=== PATIENT | male | born 1965 | race American Indian/Alaskan Native ===

== ENCOUNTER 2017-12-10 10:05 | Emergency (ER) | payer SELFPAY ==
[2017-12-10 10:16] VITALS: BP 159/89
[2017-12-10] MEDS ORDERED: TORADOL IV ONE (11:13)
[2017-12-10] MEDS ORDERED: NACL 0.9% 1000 ML 1,000 ML IV ONE (11:13)
[2017-12-10] MEDS ORDERED: ULTRAM PO ONE (11:13)
--- NOTE | 2017-12-10 11:20 | Emergency Department Report ---
Blank Doc - Documentation Documentation: 52-year-old male with left leg pain since last night. Patient reports previous history of DVT in left leg 3 years ago. Not currently on blood thinners. He states since the DVT, has had chronic swelling and chronic pain left leg. Reports pain worsened yesterday and is located on the lateral aspect of left leg. Patient reports chronic rash around the left ankle since DVT diagnosis. Patient reports headache, denies fever, nausea, vomiting, shortness of breath. On exam left leg greater than right, which is normal at baseline per patient. Patient has a hyperpigmented, macular rash to left ankle. Mild erythema and tenderness present on lateral aspect of left lower leg. No calf tenderness present. DVT versus cellulitis. We will obtain ultrasound of the leg and labs.
[2017-12-10 11:38] LABS: Basophils % (Auto) 0.7 % (0.0-1.8); Eosinophils # (Auto) 0.2 K/mm3 (0.0-0.4); Eosinophils % (Auto) 4.2 % (0.0-4.3); Hematocrit 40.3 % (35.5-45.6); Hemoglobin 12.9 gm/dl (11.8-15.2); Lymphocytes # (Auto) 0.8 K/mm3 (1.2-5.4); Lymphocytes % (Auto) 16.8 % (13.4-35.0); Mean Corpuscular HGB Conc 32 % (32-34); Mean Corpuscular Hemoglobin 26 pg (28-32); Mean Corpuscular Volume 82 fl (84-94); Monocytes # (Auto) 0.4 K/mm3 (0.0-0.8); Monocytes % (Auto) 8.8 % (0.0-7.3); Platelet Count 207 K/mm3 (140-440); Red Blood Count 4.91 M/mm3 (3.65-5.03); Red Cell Distribution Width 21.1 % (13.2-15.2)
[2017-12-10 11:46] LABS: INR 1.01 (0.87-1.13)
[2017-12-10 11:47] LABS: Partial Thromboplastin Time 24.1 Sec. (24.2-36.6)
[2017-12-10 11:56] LABS: BUN/Creatinine Ratio 14; Blood Urea Nitrogen 11 mg/dL (9-20); Calcium 8.8 mg/dL (8.4-10.2); Hemolysis Index 43
--- NOTE | 2017-12-10 12:59 | Emergency Department Report ---
ED Extremity Problem HPI - General Chief complaint: Extremity Injury, Lower Stated complaint: HEADACHE/LEG PAIN Time Seen by Provider: 12/10/17 10:52 Source: patient, family Mode of arrival: Ambulatory Limitations: No Limitations - History of Present Illness Initial comments: 52-year-old male with left leg pain since last night. Patient reports previous history of DVT in left leg 3 years ago. Not currently on blood thinners. He states since the DVT, has had chronic swelling and chronic pain left leg. Reports pain worsened yesterday and is located on the lateral aspect of left leg. Patient reports chronic rash around the left ankle since DVT diagnosis. Patient reports headache, denies fever, nausea, vomiting, shortness of breath. Patient also reports rash to his lower leg has been there for a year. Pain is 7 out of 10 and achy. Pain is worse with movement and walking. Patient says that he does not have any insurance so he cannot follow up but he had previously treated at [facility] when he did have insurance. He currently does not have a primary care doctor. MD Complaint: extremity pain -: Last night Location: left, lower extremity History of Same: Yes -: No myalgia, Yes arthralgia, No fever, No associated dyspnea, No associated chest pain Radiation: none Severity scale (0 -10): 7 Quality: aching Consistency: constant Improves with: rest Worsens with: weight bearing, walking Associated Symptoms: arthralgias, other (headache). denies: chest pain, shortness of breath, fever, myalgias, rash - Related Data Previous Rx's Medication Instructions Recorded Last Taken Type HYDROcodone/APAP 5-325 [Drifting 1 each PO Q6HR PRN #14 tablet 08/21/13 Unknown Rx 5-325 mg TAB] Ibuprofen [Motrin] 800 mg PO Q8H PRN #20 tablet 08/21/13 Unknown Rx Clindamycin [Clindamycin CAP] 300 mg PO Q8H 10 Days #30 cap 12/10/17 Unknown Rx Triamcinolone 0.1% [Kenalog 0.1% 1 applic TP TID 7 Days #1 tube 12/10/17 Unknown Rx CREAM] traMADol [Ultram 50 MG tab] 50 mg PO Q6HR PRN #12 tablet 12/10/17 Unknown Rx Allergies Allergy/AdvReac Type Severity Reaction Status Date / Time Penicillins Allergy Itching Verified 12/10/17 10:14 ED Review of Systems ROS: Stated complaint: HEADACHE/LEG PAIN Other details as noted in HPI Constitutional: denies: chills, fever Eyes: denies: eye pain, eye discharge, vision change ENT: denies: ear pain, throat pain, congestion Respiratory: denies: cough, shortness of breath, SOB with exertion, SOB at rest , stridor, wheezing Cardiovascular: edema. denies: chest pain, palpitations, dyspnea on exertion, syncope Gastrointestinal: denies: abdominal pain, nausea, vomiting, diarrhea Genitourinary: denies: urgency, dysuria, hematuria Musculoskeletal: arthralgia, other (abdomen to lower extremity). denies: back pain, joint swelling, myalgia Skin: denies: rash, lesions Neurological: headache. denies: weakness, numbness, paresthesias, confusion, abnormal gait, vertigo ED Past Medical Hx - Past Medical History Previous Medical History?: Yes Hx Deep Vein Thrombosis: Yes Additional medical history: GI bleed - Surgical History Past Surgical History?: Yes Hx Appendectomy: Yes Additional Surgical History: Bilateral inguinal hernia repair - Family History Family history: hypertension - Social History Smoking Status: Never Smoker Substance Use Type: Alcohol - Medications Home Medications: Home Medications Medication Instructions Recorded Confirmed Last Taken Type HYDROcodone/APAP 5-325 [Drifting 1 each PO Q6HR PRN #14 tablet 08/21/13 Unknown Rx 5-325 mg TAB] Ibuprofen [Motrin] 800 mg PO Q8H PRN #20 tablet 08/21/13 Unknown Rx Clindamycin [Clindamycin CAP] 300 mg PO Q8H 10 Days #30 cap 12/10/17 Unknown Rx Triamcinolone 0.1% [Kenalog 0.1% 1 applic TP TID 7 Days #1 tube 12/10/17 Unknown Rx CREAM] traMADol [Ultram 50 MG tab] 50 mg PO Q6HR PRN #12 tablet 12/10/17 Unknown Rx ED Physical Exam - General Limitations: No Limitations General appearance: alert, in no apparent distress - Head Head exam: Present: atraumatic, normocephalic, normal inspection, other (normal exam) - Eye Eye exam: Present: normal appearance, PERRL, EOMI. Absent: periorbital swelling , periorbital tenderness Pupils: Present: normal accommodation - ENT ENT exam: Present: normal exam, normal orophraynx, mucous membranes moist, TM's normal bilaterally, normal external ear exam - Neck Neck exam: Present: normal inspection, full ROM. Absent: tenderness, lymphadenopathy - Respiratory Respiratory exam: Present: normal lung sounds bilaterally. Absent: respiratory distress, wheezes, rales, rhonchi, stridor, chest wall tenderness, accessory muscle use, decreased breath sounds, prolonged expiratory - Cardiovascular Cardiovascular Exam: Present: regular rate, normal rhythm, normal heart sounds. Absent: systolic murmur, diastolic murmur - GI/Abdominal GI/Abdominal exam: Present: soft, normal bowel sounds. Absent: distended, tenderness, guarding, rebound, rigid, organomegaly, mass - Extremities Exam Extremities exam: Present: normal inspection, full ROM, tenderness (left lower extremity), normal capillary refill, pedal edema (left leg, ankle and foot), joint swelling, other (No cce. + 2 pulses in all extremities, no neurovascular compromise except for left leg with swelling and an tenderness to palpate an rash. Mild erythema noted to the distal leg.). Absent: calf tenderness - Expanded Lower Extremity Exam Left Hip exam: Present: normal inspection, full ROM, pelvic stability. Absent: tenderness, swelling, abrasion, laceration, ecchymosis, deformity, crepidus, dislocation, erythema, external rotation, internal rotation, shortening Upper Leg exam: Present: normal inspection, full ROM. Absent: tenderness, swelling, abrasion, laceration, ecchymosis, deformity, crepidus, dislocation, erythema Knee exam: Present: normal inspection, full ROM, full knee extension. Absent: tenderness, swelling, abrasion, laceration, ecchymosis, deformity, crepidus, dislocation, erythema, effusion, pain w/ pronation/supination Lower Leg exam: Present: full ROM, tenderness (distal leg), swelling (leg to include ankle and foot), erythema (mild erythema distal leg around the rash site ). Absent: normal inspection, abrasion, laceration, ecchymosis, deformity, crepidus, dislocation, palpable cord, Prachi's sign Ankle exam: Present: full ROM, swelling. Absent: normal inspection, tenderness , abrasion, laceration, ecchymosis, deformity, crepidus, dislocation, erythema Foot/Toe exam: Present: full ROM, swelling. Absent: normal inspection, tenderness, abrasion, laceration, ecchymosis, deformity, crepidus, dislocation, erythema, amputation, puncture wound, foreign body, calcaneal tenderness, tenderness at base of 5th metatarsal, nail avulsion, subungual hematoma Neuro vascular tendon exam: Present: no vascular compromise. Absent: pulse deficit, abnormal cap refill, motor deficit, sensory deficit, tendon deficit, extremity cold to touch, pallor, abnormal 2-point discrimination, decreased fine /light touch, foot drop, peroneal nerve deficit, significant pain with passive ROM of distal joint Gait: Positive: observed and limited by pain - Back Exam Back exam: Present: normal inspection, full ROM, other (relates that difficulties) - Neurological Exam Neurological exam: Present: alert, oriented X3, normal gait, reflexes normal. Absent: motor sensory deficit - Psychiatric Psychiatric exam: Present: normal affect, normal mood - Skin Skin exam: Present: warm, dry, intact, normal color, rash (noted rash to distal anterior leg, hypopigmented, flat without any drainage. Some redness noted.), erythema (around rest sided distal anterior leg) ED Course Vital Signs 12/10/17 12/10/17 12/10/17 10:14 10:34 12:36 Temperature 98.5 F Pulse Rate 85 Respiratory 16 16 18 Rate Blood Pressure 159/89 O2 Sat by Pulse 99 Oximetry 12/10/17 13:00 Temperature Pulse Rate Respiratory 18 Rate Blood Pressure O2 Sat by Pulse Oximetry - Reevaluation(s) Reevaluation #1: 12/10/17 13:08 Patient given normal saline 1 L, Toradol 50 mg IV and Ultram 50 mg by mouth. He voices relief of pain and said he feels better. Denies any headache at present. ED Medical Decision Making - Lab Data Result diagrams: 12/10/17 11:26 12/10/17 11:26 Lab Results 12/10/17 12/10/17 12/10/17 Range/Units 11:26 11:26 11:26 WBC 4.7 (4.5-11.0) K/mm3 RBC 4.91 (3.65-5.03) M/mm3 Hgb 12.9 (11.8-15.2) gm/dl Hct 40.3 (35.5-45.6) % MCV 82 L (84-94) fl MCH 26 L (28-32) pg MCHC 32 (32-34) % RDW 21.1 H (13.2-15.2) % Plt Count 207 (140-440) K/mm3 Lymph % (Auto) 16.8 (13.4-35.0) % [place] % (Auto) 8.8 H (0.0-7.3) % Eos % (Auto) 4.2 (0.0-4.3) % Baso % (Auto) 0.7 (0.0-1.8) % Lymph # 0.8 L (1.2-5.4) K/mm3 [place] # 0.4 (0.0-0.8) K/mm3 Eos # 0.2 (0.0-0.4) K/mm3 Baso # 0.0 (0.0-0.1) K/mm3 Seg Neutrophils % 69.5 (40.0-70.0) % Seg Neutrophils # 3.3 (1.8-7.7) K/mm3 PT 13.8 (12.2-14.9) Sec. INR 1.01 (0.87-1.13) APTT 24.1 L (24.2-36.6) Sec. D-Dimer 152.02 (0-234) ng/mlDDU Sodium 136 L (137-145) mmol/L Potassium 3.8 (3.6-5.0) mmol/L Chloride 103.0 (98-107) mmol/L Carbon Dioxide 23 (22-30) mmol/L Anion Gap 14 mmol/L BUN 11 (9-20) mg/dL Creatinine 0.8 (0.8-1.5) mg/dL Estimated GFR > 60 ml/min BUN/Creatinine Ratio 14 % Glucose 89 (75-100) mg/dL Calcium 8.8 (8.4-10.2) mg/dL - Radiology Data Radiology results: report reviewed Preliminary ultrasound lower extremity report below and final report to come from radiology. AUTUMNARNAV Baxter TATI Male : 1965 MedRec# [id number] 12/10/17 11:48 - Radiology Dept. Note by RABIA AYERS Acct Num: [id number] : 1965 Patient Age: 52 LLE VENOUS DUPLEX COMPLETED. VAS LAB PRELIMINARY REPORT; NO EVIDENCE OF ACUTE DVT/SVT NOTED IN VESSELS/SEGMENTS EXAMINED. CHRONIC/ RECANALIZED CLOT NOTED IN LT. DST SFV, POP V AND PX CALF VESSELS (PTV). PHYSICIANS REPORT TO FOLLOW...(RSK ) Initialized on 12/10/17 11:48 - END OF NOTE - Medical Decision Making 52-year-old male here for leg pain and swelling and headache. Patient was screened by Dr. Mo and ordered place. Radiology LLE VENOUS DUPLEX COMPLETED. VAS LAB PRELIMINARY REPORT; NO EVIDENCE OF ACUTE DVT/SVT NOTED IN VESSELS/SEGMENTS EXAMINED. CHRONIC/ RECANALIZED CLOT NOTED IN LT. DST SFV, POP V AND PX CALF VESSELS (PTV). PHYSICIANS REPORT TO FOLLOW...(RSK ) Initialized on 12/10/17 11:48 final report to follow Labs: CBC, BMP, PT/PTT and d-dimer stable Assessment/plan DVT left lower extremity-Doppler ultrasound found no acute DVT but a somewhat chronic DVT with good flow. Pedal pulses are 2+. Patient referred to vascular doctor and [facility] Cellulitis left lower extremity-localized. Patient discharged home in clindamycin. Arthralgia left leg-given Ultram 50 mg by mouth and Toradol 50 mg IV and emergency room. Pain has been relieved and discharged home on Ultram Localized rash, chronic left leg-prescription for triamcinolone cream and referral to global lead Headache-better after IV fluids 1 L normal saline and pain medication Discussed the patient ultrasound findings, diagnosis, treatment plan and medication. Vital signs are stable he is afebrile and he is nontoxic in appearance. Patient said he is feeling better and his pain has resolved. I discussed with him that he needs to follow up with saw outside [facility] for primary care to call today to schedule an appointment for tomorrow and also to follow-up with global lead and vascular doctor in 2 days. He voiced understanding. Patient discharged home with his family with prescription for Ultram, triamcinolone cream and clindamycin. - Differential Diagnosis DVT, cellulitis Critical care attestation.: If time is entered above; I have spent that time in minutes in the direct care of this critically ill patient, excluding procedure time. ED Disposition Clinical Impression: Cellulitis of leg without foot, left, Localized skin eruption, Arthralgia of left lower leg, Swelling of left lower extremity Chronic deep vein thrombosis (DVT) of left lower extremity Qualifiers: Affected thrombotic vein of extremity: unspecified vein of extremity Qualified Code(s): I82.502 - Chronic embolism and thrombosis of unspecified deep veins of left lower extremity Disposition: DC-01 TO HOME OR SELFCARE Is pt being admited?: No Does the pt Need Aspirin: No Condition: Stable Instructions: Cellulitis (ED), Deep Venous Thrombosis (ED), Leg Edema (ED), Arthralgia (ED) Additional Instructions: Please see discharge instruction for referral to outside [facility] primary care. He can call today to schedule an appointment with another E do not have insurance and they can also help you with the following for Medicaid. You will need to see a global lead regarding chronic rash to left leg. You will eventually did to follow-up with a vascular doctor to monitor your left lower extremity chronic DVT. Please see discharge instruction for referral. He can take Ultram for pain. Please note her for operative machinery while taking this medication. Take clindamycin for cellulitis to left lower extremity Apply topical steroid to rash left lower extremity. If he develops shortness of breath, chest pain, weakness, fever please return to the emergency room KAREN Prescriptions: Clindamycin [Clindamycin CAP] 300 mg PO Q8H 10 Days #30 cap traMADol [Ultram 50 MG tab] 50 mg PO Q6HR PRN #12 tablet PRN Reason: Pain Triamcinolone 0.1% [Kenalog 0.1% CREAM] 1 applic TP TID 7 Days #1 tube Referrals: SCHUYLER ABDALLA MD [Staff Physician] - 12/12/17 TEODORO CAN MD [Staff Physician] - 12/12/17 [facility] [Outside] - 12/11/17 Forms: Accompanied Note, Work/School Release Form(ED)
--- NOTE | 2017-12-10 14:43 | Vascular Lab Report ---
Left Lower Extremity Venous Duplex Study: Reason for Exam: Pain and swelling of the left lower extremity. Comments on the Right: A limited duplex study was done of the proximal veins of the right lower extremity. All veins visualized are freely compressible without evidence of internal echogenicity. Flow is spontaneous and phasic throughout. No evidence of acute or chronic thrombus is seen in any of the vessels visualized. Comments on the Left: Partially occluding thrombus is seen in the distal superficial femoral vein, popliteal vein, and the tibial veins.. The remaining veins visualized are freely compressible without evidence of internal echogenicity. Spontaneous and phasic flow is present proximally. Impression: Chronic partially occluding thrombus in the distal superficial femoral, popliteal, and tibial veins of the left lower extremity. No evidence of acute deep venous thrombosis in the left lower extremity.
== END 2017-12-10 13:35 | disposition home or self-care (01) ==
LOC: ED 10:05
DX: L03.116 Cellulitis of left lower limb (principal); I82.502 Chronic embolism and thrombosis of unspecified deep veins of left lower extremity; R51 Headache; Z90.49 Acquired absence of other specified parts of digestive tract; Z79.899 Other long term (current) drug therapy; Z88.0 Allergy status to penicillin
CPT/HCPCS: 36415; 80048; 85025; 85379; 85610; 85730; 93971; 96374; 99284; J1885; J7030

== ENCOUNTER 2018-08-17 05:27 | Emergency (ER) | payer SELFPAY ==
[2018-08-17 06:17] LABS: Basophils % (Auto) 0.6 % (0.0-1.8); Eosinophils # (Auto) 0.1 K/mm3 (0.0-0.4); Eosinophils % (Auto) 2.2 % (0.0-4.3); Hematocrit 38.5 % (35.5-45.6); Hemoglobin 12.7 gm/dl (11.8-15.2); Lymphocytes # (Auto) 1.3 K/mm3 (1.2-5.4); Lymphocytes % (Auto) 23.3 % (13.4-35.0); Mean Corpuscular HGB Conc 33 % (32-34); Mean Corpuscular Volume 83 fl (84-94); Monocytes # (Auto) 0.3 K/mm3 (0.0-0.8); Monocytes % (Auto) 6.2 % (0.0-7.3); Platelet Count 210 K/mm3 (140-440); Red Blood Count 4.62 M/mm3 (3.65-5.03); Red Cell Distribution Width 17.6 % (13.2-15.2)
[2018-08-17 06:27] LABS: Alanine Aminotransferase 22 units/L (7-56); Albumin 3.9 g/dL (3.9-5); BUN/Creatinine Ratio 13; Blood Urea Nitrogen 14 mg/dL (9-20); Calcium 8.7 mg/dL (8.4-10.2); Hemolysis Index 8
--- NOTE | 2018-08-17 06:49 | Emergency Department Report ---
ED General Adult HPI - General Chief complaint: GI Bleed Stated complaint: RECTAL BLEEDING Time Seen by Provider: 08/17/18 06:21 Source: patient, RN notes reviewed, old records reviewed Mode of arrival: Ambulatory Limitations: No Limitations - History of Present Illness Initial comments: This is a pleasant 52-year-old gentleman, not known to this provider previously. He does not have a local primary care doctor. He denies taking long-term prescription medications. He has a distant history of left lower extremity DVT. He reports that he believes it is mostly resolved. He is not taking systemic anticoagulation. Patient reports having had at least 2 colonoscopies in 2015, and believes they were unremarkable. He also endorses a history of hemorrhoids. He presents to the emergency room today with a complaint of pain was intermittent rectal bleeding, for the past 3-4 days. Bleeding is initially intermittent, and increases with defecation, and decreases with rest. He denies physical pain. He denies headache, neck pain, chest pain, syncope, abdominal pain, urinary symptoms, fever, rash, arthritis. He now endorses that he is having persistent oozing, from his hemorrhoid, and that it is not stopping. Direct application of pressure seems to decrease his symptoms otherwise. -: Gradual, days(s) Consistency: intermittent Improves with: other Worsens with: other - Related Data Previous Rx's Medication Instructions Recorded Last Taken Type HYDROcodone/APAP 5-325 [[place] 1 each PO Q6HR PRN #14 tablet 08/21/13 Unknown Rx 5-325 mg TAB] Clindamycin [Clindamycin CAP] 300 mg PO Q8H 10 Days #30 cap 12/10/17 Unknown Rx Triamcinolone 0.1% [Kenalog 0.1% 1 applic TP TID 7 Days #1 tube 12/10/17 Unknown Rx CREAM] traMADol [Ultram 50 MG tab] 50 mg PO Q6HR PRN #12 tablet 12/10/17 Unknown Rx Hydrocortisone [Anusol-Hc 2.5% TOP 30 gm RC BID #5 cream..g. 08/17/18 Unknown Rx CREAM] Allergies Allergy/AdvReac Type Severity Reaction Status Date / Time Penicillins Allergy Itching Verified 12/10/17 10:14 ED Review of Systems ROS: Stated complaint: RECTAL BLEEDING Other details as noted in HPI Constitutional: denies: fever Eyes: denies: eye discharge ENT: denies: epistaxis Respiratory: denies: cough Cardiovascular: denies: chest pain Gastrointestinal: denies: abdominal pain, nausea, vomiting, diarrhea, constipation, hematemesis, melena Genitourinary: denies: urgency Musculoskeletal: denies: back pain Skin: denies: lesions Neurological: denies: weakness Psychiatric: anxiety ED Past Medical Hx - Past Medical History Previous Medical History?: Yes Hx Deep Vein Thrombosis: Yes Additional medical history: GI bleed - Surgical History Past Surgical History?: Yes Hx Appendectomy: Yes Additional Surgical History: Bilateral inguinal hernia repair - Social History Smoking Status: Never Smoker Substance Use Type: Alcohol - Medications Home Medications: Home Medications Medication Instructions Recorded Confirmed Last Taken Type HYDROcodone/APAP 5-325 [[place] 1 each PO Q6HR PRN #14 tablet 08/21/13 Unknown Rx 5-325 mg TAB] Clindamycin [Clindamycin CAP] 300 mg PO Q8H 10 Days #30 cap 12/10/17 Unknown Rx Triamcinolone 0.1% [Kenalog 0.1% 1 applic TP TID 7 Days #1 tube 12/10/17 Unknown Rx CREAM] traMADol [Ultram 50 MG tab] 50 mg PO Q6HR PRN #12 tablet 12/10/17 Unknown Rx Hydrocortisone [Anusol-Hc 2.5% TOP 30 gm RC BID #5 cream..g. 08/17/18 Unknown Rx CREAM] ED Physical Exam - General Limitations: No Limitations General appearance: alert, anxious, obese - Head Head exam: Present: atraumatic, normocephalic - Eye Eye exam: Present: normal appearance, EOMI. Absent: nystagmus - ENT ENT exam: Present: normal exam, normal orophraynx, mucous membranes moist, normal external ear exam - Neck Neck exam: Present: normal inspection, full ROM. Absent: tenderness, meningismus - Respiratory Respiratory exam: Present: normal lung sounds bilaterally. Absent: respiratory distress - Cardiovascular Cardiovascular Exam: Present: regular rate, normal rhythm, normal heart sounds. Absent: bradycardia, tachycardia, irregular rhythm, systolic murmur, diastolic murmur, rubs, gallop - GI/Abdominal GI/Abdominal exam: Present: soft. Absent: distended, tenderness, guarding, rebound, rigid, pulsatile mass - Rectal Rectal exam: Present: normal inspection, normal rectal tone, heme (+) stool, hemorrhoids (prolapsed hemorrhoids noted, no pus or streaking. Do not appear to be thrombosed.), other (chaperoned by nurse HUGH VILLALTA). Absent: black stool, bloody stool, mass - Extremities Exam Extremities exam: Present: normal inspection, full ROM, other (2+ pulses noted in the bilateral upper, lower extremities. Compartments soft. No long bony tenderness. The pelvis is stable.). Absent: tenderness, joint swelling, calf tenderness - Back Exam Back exam: Present: normal inspection, full ROM. Absent: tenderness, CVA tenderness (R), CVA tenderness (L), paraspinal tenderness, vertebral tenderness - Neurological Exam Neurological exam: Present: alert, oriented X3, other (Extraocular movements intact. Tongue midline. No facial droop. Facial sensation intact to light touch in the V1, V2, V3 distribution bilaterally. 5 and 5 strength in 4 extremities.. Sensation is intact to light touch in 4 extremities.). Absent: motor sensory deficit - Psychiatric Psychiatric exam: Present: anxious - Skin Skin exam: Present: warm, dry, intact, normal color. Absent: rash ED Course Vital Signs 08/17/18 08/17/18 08/17/18 05:32 06:54 06:55 Temperature 98.1 F 98.4 F Pulse Rate 114 H 89 Respiratory 20 16 Rate Blood Pressure 118/91 Blood Pressure 142/91 [Left] O2 Sat by Pulse 100 99 99 Oximetry ED Medical Decision Making - Lab Data Result diagrams: 08/17/18 05:57 08/17/18 05:57 Vital Signs 08/17/18 08/17/18 08/17/18 05:32 06:54 06:55 Temperature 98.1 F 98.4 F Pulse Rate 114 H 89 Respiratory 20 16 Rate Blood Pressure 118/91 Blood Pressure 142/91 [Left] O2 Sat by Pulse 100 99 99 Oximetry Lab Results 08/17/18 08/17/18 Range/Units 05:57 05:57 WBC 5.5 (4.5-11.0) K/mm3 RBC 4.62 (3.65-5.03) M/mm3 Hgb 12.7 (11.8-15.2) gm/dl Hct 38.5 (35.5-45.6) % MCV 83 L (84-94) fl MCH 28 (28-32) pg MCHC 33 (32-34) % RDW 17.6 H (13.2-15.2) % Plt Count 210 (140-440) K/mm3 Lymph % (Auto) 23.3 (13.4-35.0) % [place] % (Auto) 6.2 (0.0-7.3) % Eos % (Auto) 2.2 (0.0-4.3) % Baso % (Auto) 0.6 (0.0-1.8) % Lymph # 1.3 (1.2-5.4) K/mm3 [place] # 0.3 (0.0-0.8) K/mm3 Eos # 0.1 (0.0-0.4) K/mm3 Baso # 0.0 (0.0-0.1) K/mm3 Seg Neutrophils % 67.7 (40.0-70.0) % Seg Neutrophils # 3.7 (1.8-7.7) K/mm3 Sodium 140 (137-145) mmol/L Potassium 3.7 (3.6-5.0) mmol/L Chloride 105.1 (98-107) mmol/L Carbon Dioxide 21 L (22-30) mmol/L Anion Gap 18 mmol/L BUN 14 (9-20) mg/dL Creatinine 1.1 (0.8-1.5) mg/dL Estimated GFR > 60 ml/min BUN/Creatinine Ratio 13 % Glucose 114 H (75-100) mg/dL Calcium 8.7 (8.4-10.2) mg/dL Total Bilirubin 0.50 (0.1-1.2) mg/dL AST 28 (5-40) units/L ALT 22 (7-56) units/L Alkaline Phosphatase 38 (35-129) units/L Total Protein 7.6 (6.3-8.2) g/dL Albumin 3.9 (3.9-5) g/dL Albumin/Globulin Ratio 1.1 % - Medical Decision Making Differential diagnosis, including but not limited to: Internal hemorrhoid, external hemorrhoid, anal fissure Assessment and plan: 52-year-old gentleman, who is not on systemic anticoagulation, who reports that he is not taking NSAIDs, with no obvious palpable or appreciable anal fissure on examination, with what appears to be prolapsed internal hemorrhoid, with easily friable tissue, but no active bleeding, and external hemorrhoids. Patient reports recent colonoscopy within the past 4 years. Tachycardia resolved. Hemodynamically stable. Counseling and reassurance provided to patient. We discussed diet and lifestyle modifications, sitz baths, and need to follow-up with either outpatient gastroenterology, or Gen. surgery. Patient verbalizes understanding. He is medically suitable for discharge at this point in time, with instructions to follow up with outpatient gastroenterology, or Gen. surgery. Critical care attestation.: If time is entered above; I have spent that time in minutes in the direct care of this critically ill patient, excluding procedure time. ED Disposition Clinical Impression: Hemorrhoid prolapse Disposition: - TO HOME OR SELFCARE Is pt being admited?: No Does the pt Need Aspirin: No Condition: Stable Instructions: Hemorrhoids (ED), Sitz Bath (GEN) Additional Instructions: Avoid consumption of Motrin, ibuprofen, Naprosyn, Aleve, aspirin, alcohol. Drink 4-6 cups of water per day, for the next 3 weeks, and make certain to increase consumption of fiber, vegetables, and avoid consumption of processed food, carbohydrates. Apply sitz baths as often as as needed, and apply a topical cream as directed. Follow-up with a general surgeon, or lap layer within the next 7-10 days. Return to the emergency room right away with new, worsened or different symptoms, or symptoms not present on the initial emergency room evaluation. Referrals: KYLAH PEARSON MD [Staff Physician] - 7-10 days (gi doctor) DHAVAL CERVANTES MD [Staff Physician] - 7-10 days (general surgeon) Forms: Accompanied Note
[2018-08-17 08:09] VITALS: BP 112/63
== END 2018-08-17 08:09 | disposition home or self-care (01) ==
LOC: ED 05:27
DX: K64.8 Other hemorrhoids (principal); Z88.0 Allergy status to penicillin; Z86.718 Personal history of other venous thrombosis and embolism; Z90.89 Acquired absence of other organs
CPT/HCPCS: 36415; 80053; 85025

== ENCOUNTER 2019-11-20 09:37 | Emergency (ER) | payer SELFPAY ==
[2019-11-20 09:59] VITALS: BP 158/94
[2019-11-20] MEDS ORDERED: KETOROLAC 10 MG TAB PO ONE (10:37)
--- NOTE | 2019-11-20 11:43 | XRay Report ---
RIGHT KNEE 4 VIEWS INDICATION / CLINICAL INFORMATION: Right knee pain. COMPARISON: None available. FINDINGS: BONES / JOINT(S): There are mild tricompartmental degenerative changes. There is a moderate suprapate llar joint effusion. There is a 1.4 cm ovoid calcific or ossific density along the lateral aspect of the distal femur which may represent an intra-articular loose body. I see no evidence of fracture, [place] bluxation or destructive lesion. SOFT TISSUES: No significant abnormality. ADDITIONAL FINDINGS: None. Signer Name: Chris Beth MD Signed: 11/20/2019 11:38 AM Workstation Name: [id number]
--- NOTE | 2019-11-20 12:06 | Emergency Department Report ---
ED Extremity Problem HPI - General Chief complaint: Extremity Problem,Nontraumatic Stated complaint: RT KNEE/PAIN Time Seen by Provider: 11/20/19 10:21 Source: patient Mode of arrival: Ambulatory Limitations: No Limitations - History of Present Illness Initial comments: Patient is a 53-year-old male presents emergency room with complaints of right knee pain that began 3 weeks ago but has been slowly worsening. He states that occasionally he feels a tingling sensation in his right foot. He denies any fall or injury. He denies any leg swelling or calf pain. He denies any complete numbness or weakness. He states he has a past medical history of DVT but states that it does not feel like when he had a DVT, he states that when he had a DVT he had calf pain and calf swelling and he states that he does not have either of those. He has an allergy to penicillin. Severity scale (0 -10): 8 - Related Data Previous Rx's Medication Instructions Recorded Last Taken Type HYDROcodone/APAP 5-325 [[place] 1 each PO Q6HR PRN #14 tablet 08/21/13 Unknown Rx 5-325 mg TAB] Clindamycin [Clindamycin CAP] 300 mg PO Q8H 10 Days #30 cap 12/10/17 Unknown Rx Triamcinolone 0.1% [Kenalog 0.1% 1 applic TP TID 7 Days #1 tube 12/10/17 Unknown Rx CREAM] traMADoL [Ultram 50 MG tab] 50 mg PO Q6HR PRN #12 tablet 12/10/17 Unknown Rx Hydrocortisone [Anusol-Hc 2.5% TOP 30 gm RC BID #5 cream..g. 08/17/18 Unknown Rx CREAM] Menthol/Camphor [[place] 1 applicatio TP BID #18 oint...g. 11/20/19 Unknown Rx Ointment] Naproxen [EC-Naprosyn] 500 mg PO BID PRN #20 tablet. 11/20/19 Unknown Rx Allergies Allergy/AdvReac Type Severity Reaction Status Date / Time Penicillins Allergy Itching Verified 12/10/17 10:14 ED Review of Systems ROS: Stated complaint: RT KNEE/PAIN Other details as noted in HPI Comment: All other systems reviewed and negative ED Past Medical Hx - Past Medical History Previous Medical History?: Yes Hx Deep Vein Thrombosis: Yes (left leg) Additional medical history: GI bleed - Surgical History Past Surgical History?: Yes Hx Appendectomy: Yes Additional Surgical History: Bilateral inguinal hernia repair - Social History Smoking Status: Never Smoker Substance Use Type: None - Medications Home Medications: Home Medications Medication Instructions Recorded Confirmed Last Taken Type HYDROcodone/APAP 5-325 [[place] 1 each PO Q6HR PRN #14 tablet 08/21/13 Unknown Rx 5-325 mg TAB] Clindamycin [Clindamycin CAP] 300 mg PO Q8H 10 Days #30 cap 12/10/17 Unknown Rx Triamcinolone 0.1% [Kenalog 0.1% 1 applic TP TID 7 Days #1 tube 12/10/17 Unknown Rx CREAM] traMADoL [Ultram 50 MG tab] 50 mg PO Q6HR PRN #12 tablet 12/10/17 Unknown Rx Hydrocortisone [Anusol-Hc 2.5% TOP 30 gm RC BID #5 cream..g. 08/17/18 Unknown Rx CREAM] Menthol/Camphor [[place] 1 applicatio TP BID #18 oint...g. 11/20/19 Unknown Rx Ointment] Naproxen [EC-Naprosyn] 500 mg PO BID PRN #20 tablet. 11/20/19 Unknown Rx ED Physical Exam - General Limitations: No Limitations General appearance: alert, in no apparent distress - Head Head exam: Present: atraumatic, normocephalic - Eye Eye exam: Present: normal appearance - ENT ENT exam: Present: mucous membranes moist - Extremities Exam Extremities exam: Present: other (right medial knee ttp, mild edema present to the knee, no erythema, no increased warmth, FROM of the RLE, no posterior knee ttp, no leg edema, no calf ttp, neurovasculalry intact, 2+ distal pulses) - Neurological Exam Neurological exam: Present: alert, oriented X3 - Psychiatric Psychiatric exam: Present: normal affect, normal mood - Skin Skin exam: Present: warm, dry, intact ED Course Vital Signs 11/20/19 11/20/19 09:56 11:28 Temperature 98.4 F Pulse Rate 80 Respiratory 18 18 Rate Blood Pressure 158/94 O2 Sat by Pulse 100 Oximetry ED Medical Decision Making - Radiology Data Radiology results: report reviewed RIGHT KNEE 4 VIEWS INDICATION / CLINICAL INFORMATION: Right knee pain. COMPARISON: None available. FINDINGS: BONES / JOINT(S): There are mild tricompartmental degenerative changes. There is a moderate suprapatellar joint effusion. There is a 1.4 cm ovoid calcific or ossific density along the lateral aspect of the distal femur which may represent an intra-articular loose body. I see no evidence of fracture, subluxation or destructive lesion. SOFT TISSUES: No significant abnormality. ADDITIONAL FINDINGS: None. Signer Name: Sana Beth MD Signed: 11/20/2019 11:38 AM Workstation Name: [id number] Transcribed By: RT Dictated By: Sana Beth MD Electronically Authenticated By: Sana Beth MD Signed Date/Time: 11/20/191137 DD/ 35 TD/TT: - Medical Decision Making Patient is a 53-year-old male presents emergency room with complaints of right knee pain that began 3 weeks ago but has been slowly worsening. He states that occasionally he feels a tingling sensation in his right foot. He denies any fall or injury. He denies any leg swelling or calf pain. He denies any complete numbness or weakness. He states he has a past medical history of DVT but states that it does not feel like when he had a DVT, he states that when he had a DVT he had calf pain and calf swelling and he states that he does not have either of those. He has an allergy to penicillin. VSS. on exam: right medial knee ttp, mild edema present to the knee, no erythema, no increased warmth, FROM of the RLE, no posterior knee ttp, no leg edema, no calf ttp, neurovasculalry intact, 2+ distal pulses. XR right knee: BONES / JOINT(S): There are mild tricompartmental degenerative changes. There is a moderate suprapatellar joint effusion. There is a 1.4 cm ovoid calcific or ossific density along the lateral aspect of the distal femur which may represent an intra-articular loose body. I see no evidence of fracture, subluxation or destructive lesion. SOFT TISSUES: No significant abnormality.pt given toradol while in the ED. pt placed in baldomero bandage by nurse and remained neurovascularly intact. discussed all results with pt and answered questions. pt will be referred to orthopedic. pt given pr escription for naproxen and tiger balm ointment. advised pt please use medication as prescribed. Please do not wear your Baldomero bandage too tightly and do not wear at night. May use ice for 15 minutes at a time, rest, elevation of the leg. Follow-up with an orthopedic doctor. Follow-up with your primary care doctor. Return to emergency room for any new or worsening symptoms. - Differential Diagnosis strain, sprain, fx, dislocation, effusion, gout, arthritis, DJD, RA Critical care attestation.: If time is entered above; I have spent that time in minutes in the direct care of this critically ill patient, excluding procedure time. ED Disposition Clinical Impression: Right knee pain Qualifiers: Chronicity: acute Qualified Code(s): M25.561 - Pain in right knee Knee effusion Qualifiers: Laterality: right Qualified Code(s): M25.461 - Effusion, right knee Osteoarthritis Qualifiers: Osteoarthritis location: knee Osteoarthritis type: unspecified Laterality: right Qualified Code(s): M17.11 - Unilateral primary osteoarthritis, right knee Disposition: TO HOME OR SELFCARE Is pt being admited?: No Does the pt Need Aspirin: No Condition: Stable Instructions: Osteoarthritis (ED), Knee Effusion (ED), Arthralgia (ED) Additional Instructions: Please use medication as prescribed. Please do not wear your Baldomero bandage too tightly and do not wear at night. May use ice for 15 minutes at a time, rest, elevation of the leg. Follow-up with an orthopedic doctor. Follow-up with your primary care doctor. Return to emergency room for any new or worsening symptoms. Prescriptions: Naproxen [EC-Naprosyn] 500 mg PO BID PRN #20 tablet.dr JIMENEZ Reason: pain Menthol/Camphor [[place] Ointment] 1 applicatio TP BID #18 oint...g. Referrals: PRIMARY MD JILLIAN [Primary Care Provider] - 2-3 Days SANA PERRY MD [Staff Physician] - 2-3 Days (orthopedic ) [facility] [Provider Group] - 2-[address] [facility] [Provider Group] - 2-3 Days JEAN CARLOS GOFF MD [Staff Physician] - 2-3 Days Time of Disposition: 11:59 Print Language: [place]
== END 2019-11-20 12:18 | disposition home or self-care (01) ==
LOC: ED 09:37
DX: M25.461 Effusion, right knee (principal); M17.11 Unilateral primary osteoarthritis, right knee; Z86.718 Personal history of other venous thrombosis and embolism; Z90.49 Acquired absence of other specified parts of digestive tract; Z98.890 Other specified postprocedural states; Z79.899 Other long term (current) drug therapy
CPT/HCPCS: 99283